=== PATIENT | female | born 1985 | race Caucasian/White ===

== ENCOUNTER 2019-09-22 13:48 | Emergency (ER) | payer OTHER ==
--- NOTE | 2019-09-22 16:24 | ER ---
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 Coronavirus screen: Patient reports a cough. Patient reports shortness of breath or difficulty breathing. Patient denies measured and/or subjective temperature greater than 100.4F prior to today's visit. Patient denies travel on a cruise ship or to a country the [facility] currently lists as an affected area. Prior COVID test positive. Ebola Screen: Patient negative for fever greater than or equal to 101.5 degrees Fahrenheit, and additional compatible Ebola Virus Disease symptoms Patient denies exposure to infectious person. Patient denies travel to an Ebola-affected area in the 21 days before illness onset. No symptoms or risks identified at this time. Initial Sepsis Screen: Does the patient meet any 2 criteria? No. Patient's initial sepsis screen is negative. Does the patient have a suspected source of infection? No. Patient's initial sepsis screen is negative. Risk Assessment: Do you want to hurt yourself or someone else? Patient reports no desire to harm self or others. 13:56 Method Of Arrival: Ambulatory em 13:56 Acuity: ARY 3 em Triage Assessment: 14:06 General: Appears in no apparent distress. comfortable. General: Behavior is calm, ls4 cooperative. Pain: Denies pain. EENT: No deficits noted. No signs and/or symptoms were reported regarding the EENT system. Neuro: No deficits noted. Neuro: Level of Consciousness is awake, alert, obeys commands, Oriented to person, place, time, situation, Research Aide are equal bilaterally Gait is steady, Reports a syncopal episode pt reports syncopal episode on Sunday. . Cardiovascular: No deficits noted. Respiratory: Reports shortness of breath cough that is dry, hacking, Airway is patent Respiratory effort is even, unlabored, Respiratory pattern is regular, Breath sounds are clear bilaterally. GI: No deficits noted. No signs and/or symptoms were reported involving the gastrointestinal system. : No deficits noted. No signs and/or symptoms were reported regarding the genitourinary system. Derm: No deficits noted. No signs and/or symptoms reported regarding the dermatologic system. Skin is intact, is healthy with good turgor, Skin is dry, Skin is normal, Skin temperature is warm. Musculoskeletal: No deficits noted. No signs and/or symptoms reported regarding the musculoskeletal system. Circulation, motion, and sensation intact. Capillary refill < 3 seconds, Range of motion: intact in all extremities. 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 - Social history:: Smoking status: Patient denies any tobacco usage or history of. Screenin:02 Abuse screen: Denies threats or abuse. Denies injuries from another. ls4 14:02 Nutritional screening: No deficits noted. Tuberculosis screening: No symptoms or risk ls4 factors identified. Fall Risk None identified. Assessment: 15:05 Reassessment: Patient appears in no apparent distress at this time. Patient and/or ls4 family updated on plan of care and expected duration. Pain level reassessed. Patient is alert, oriented x 3, equal unlabored respirations, skin warm/dry/pink. Patient denies pain at this time. Patient states symptoms have improved. 15:20 Reassessment: Patient appears in no apparent distress at this time. Patient and/or ls4 family updated on plan of care and expected duration. Pain level reassessed. Patient is alert, oriented x 3, equal unlabored respirations, skin warm/dry/pink. Pt given warm blanket. 16:17 Reassessment: assumed care of pt from Lia LOPEZ. went to pt room for 1st contact with pt. ks7 let her know I would do an EKG. went to get EKG machine. Pt walked by me as I was setting up EKG. asked pt if she was in room 30, she said no. arrived at room 30, door was open and pt not in room. asked another RN at main RN station if pt walked out of ED, he stated yes. Pt eloped. did not check out or receive dc paperwork. 16:22 Reassessment: observed pt walk out of ED steady on feet no s/s of distress. ks7 Vital Signs: 13:56 BP 111 / 80; Pulse 77; Resp 18; Temp 98.1(O); Pulse Ox 100% on R/A; Weight 72.57 kg; em Height 5 ft. 4 in. (162.56 cm); Pain 0/10; 13:56 Body Mass Index 27.46 (72.57 kg, 162.56 cm) em ED Course: 13:50 Patient arrived in ED. ag5 13:50 Leif Klein MD is Private Physician. ag5 13:50 Chong Chen MD is Private Physician. ag5 14:00 Triage completed. em 14:01 Arm band placed on. em 14:02 Patient has correct armband on for positive identification. Bed in low position. Call ls4 light in reach. Side rails up X 1. engine lathe tender on. Pulse ox on. NIBP on. Verbal reassurance given. 14:02 No provider procedures requiring assistance completed. ls4 14:02 Patient maintains SpO2 saturation greater than 95% on room air. ls4 14:04 [facility] West [facility]C [facility]. snw 14:04 Pete Can MD is Attending Physician. snw 14:15 Lia Gambino, JESSICA is Primary Nurse. ls4 16:08 Britta Gonzalez, JESSICA is Primary Nurse. ks7 Administered Medications: No medications were administered Point of Care Testing: Blood Glucose: 14:06 Blood Glucose: 106 mg/dL; em Ranges: Outcome: 16:17 Eloped from patient exam room, after seeing physician Time discovered patient gone: ks7 September 22, 2019 at 16:18 16:17 Condition: stable 16:23 Patient left the ED. ks7 Signatures: Celena West FNP-C FNP-Bhupendra George, RN RN Lia Gambino, JESSICA RN ls4 Brody Cisse ag5 Britta Gonzalez RN RN ks7 Corrections: (The following items were deleted from the chart) 14:09 13:56 Chief complaint: Patient states: passed out on Sunday and was taken to [place], em discharged and diagnosed with dehydration, found out she is covid + on , reports covid em
--- OUTSIDE RECORDS SUMMARY | 2019-09-22 17:17 | XMS REPORT | Continuity of Care Document ---
:1985 Author Organization [facility] Address [address] [place] [address] Care Team Providers Name Role Phone Abisai Costello Attending Clinician Lab, Fam Pob I Attending Clinician Unavailable Problems This patient has no known problems. Allergies, Adverse Reactions, Alerts This patient has no known allergies or adverse reactions. Medications This patient has no known medications. Procedures This patient has no known procedures. Encounters Start End Encounter Admission Attending Care Care Encounter Source Date/Time Date/Time Type Type Clinicians Facility Department ID 2019-09-19 2019-09-19 Telephone Anastasia, [facility] [id number] 00:00:00 00:00:00 [facility] [id number] [place] [id number] Professio [phone] nal [address] 2019-09-17 2019-09-17 Laboratory Lab, [facility] [id number] 10:45:23 11:05:23 Only Fam Pob I Health [id number] [place] [id number] Professio [phone] nal [phone] One Results This patient has no known results.
--- OUTSIDE RECORDS SUMMARY | 2019-09-22 17:17 | XMS REPORT | Summary of Care ---
:1985 Author Organization [facility] Address [address] [place] [address] Care Team Providers Name Role Phone Unavailable Primary Care Provider Unavailable Encounter Details Date Type Department Care Team Description 09/17/2019 Letter (Out) [facility] Message s Doctor Unassigned, No [address] [facility] [place] [address] [address] [facility] [phone] [place] [address] Allergies Not on Filedocumented as of this encounter (statuses as of 09/17/2019) Medications Not on filedocumented as of this encounter (statuses as of 09/17/2019) Active Problems Not on filedocumented as of this encounter (statuses as of 09/17/2019) Social History Tobacco Use Types Packs/Day Years Used Date Never Assessed Sex Assigned at Date Recorded Not on file Job Start Date Occupation Industry Not on file Not on file Not on file Travel History Travel Start Travel End No recent travel history available. documented as of this encounter Last Filed Vital Signs Not on filedocumented in this encounter Plan of Treatment Date Type Specialty Care Team Description 09/17/2019 Laboratory Only Family Medicine Verenice Whitman, DAVIDE [address] [address] Lab, Adc Fam Pob I Health Maintenance Due Date Last Done Comments VARICELLA VACCINES (1 of 2 - 1985 2-dose childhood series) DTaP,Tdap,and Td Vaccines (1 06/05/1995 - Tdap) Depression Screening 1996 PAP SMEAR 2005 INFLUENZA VACCINE (#1) 2019 11/22/2012, 05/20/2012 PNEUMOCOCCAL 0-64 YEARS Aged Out No longe r eligible based COMBINED SERIES on patient's age to complete this to pic documented as of this encounter Results Not on filedocumented in this encounter Insurance Payer Benefit Plan / Group Subscriber ID Effective Dates Phone Address Type KARMEN PERAZA II [id number] 2019-Present H [place]/PPO/POS documented as of this encounter
--- OUTSIDE RECORDS SUMMARY | 2019-09-22 17:17 | XMS REPORT | Summary of Care ---
:1985 Author Organization [facility] Address [address] [place] [address] Care Team Providers Name Role Phone Unavailable Primary Care Provider Unavailable Reason for Visit Reason Comments Results Encounter Details Date Type Department Care Team Description 09/19/2019 Telephone [facility] Family Medicine Cynthia Barber PA Results - [address] [facility] [place] [address] [place] [address] [phone] Allergies Not on Filedocumented as of this encounter (statuses as of 09/19/2019) Medications Not on filedocumented as of this encounter (statuses as of 09/19/2019) Active Problems Not on filedocumented as of this encounter (statuses as of 09/19/2019) Social History Tobacco Use Types Packs/Day Years Used Date Never Assessed Sex Assigned at Date Recorded Not on file Job Start Date Occupation Industry Not on file Not on file Not on file Travel History Travel Start Travel End No recent travel history available. documented as of this encounter Last Filed Vital Signs Not on filedocumented in this encounter Plan of Treatment Health Maintenance Due Date Last Done Comments VARICELLA VACCINES (1 of 2 - 1985 2-dose childhood series) DTaP,Tdap,and Td Vaccines (1 06/05/1995 - Tdap) Depression Screening 1996 PAP SMEAR 2005 INFLUENZA VACCINE (#1) 2019 11/22/2012, 05/20/2012 PNEUMOCOCCAL 0-64 YEARS Aged Out No longe r eligible based COMBINED SERIES on patient's age to complete this to [facility] documented as of this encounter Results Not on filedocumented in this encounter Additional Health Concerns Infection Onset Date Last Indicated Resolved Time COVID-19 Confirmed 09/17/2019 09/17/2019 documented as of this encounter Insurance Payer Benefit Plan / Group Subscriber ID Effective Dates Phone Address Type KARMEN PERAZA II [id number] 2019-Present H [place]/PPO/POS documented as of this encounter
--- OUTSIDE RECORDS SUMMARY | 2019-09-22 17:17 | XMS REPORT | Summary of Care ---
:1985 Author Organization [facility] Address [address] [place] [address] Care Team Providers Name Role Phone Unavailable Primary Care Provider Unavailable Reason for Visit Reason Comments Exposure Encounter Details Date Type Department Care Team Description 09/17/2019 Laboratory Only [facility] Family May Whitman, COMPUTER NETWORKING INSTRUCTOR [employer] [address] [place] [address] Suspected Covid-19 [facility] Lab, Adc Fam Pob I Virus Infection [address] [place] [address] (Primary D x) [place] [address] Allergies Not on Filedocumented as of this [...] filedocumented in this encounter Plan of Treatment Name Type Priority Associated Diagnoses Order S chedule COVID-19 (PCR MOLECULAR LAB Routine Suspected Covid-1 9 Virus Expected: 09/17/2019, TESTING) Infection Expires: 2020 Health Maintenance Due Date Last Done Comments VARICELLA VACCINES (1 of 2 - 1985 2-dose childhood series) DTaP,Tdap,and Td Vaccines (1 06/05/1995 - Tdap) Depression Screening 1996 PAP SMEAR 2005 INFLUENZA VACCINE (#1) 2019 11/22/2012, 05/20/2012 PNEUMOCOCCAL 0-64 YEARS Aged Out No longe r eligible based COMBINED SERIES on patient's age to complete this to [facility] documented as of this encounter Results Not on filedocumented in this encounter Visit Diagnoses Diagnosis Suspected Covid-19 Virus Infection - Carolin gallego documented in this encounter Additional Health Concerns Infection Onset Date Last Indicated Resolved Time COVID-19 Rule Out 09/17/2019 09/17/2019 documented as of this encounter documented as of this encounter
--- OUTSIDE RECORDS SUMMARY | 2019-09-22 17:17 | XMS REPORT | Summary of Care ---
:1985 Author Organization [facility] Address [address] [place] [address] Care Team Providers Name Role Phone Unavailable Primary Care Provider Unavailable Reason for Visit Reason Comments Exposure Encounter Details Date Type Department Care Team Description 09/17/2019 Laboratory Only [facility] Family May Whitman, LOGISTICS SERVICE REPRESENTATIVE [address] [place] [address] Suspected Covid-19 [facility] Lab, Adc Fam Pob I Virus Infection [address] [place] [address] (Primary D x) [place] [address] Allergies Not on Filedocumented as [...] on patient's age to complete this to [facility] documented as of this encounter Results Not on filedocumented in this encounter Visit Diagnoses Diagnosis Suspected Covid-19 Virus Infection - Carolin gallego documented in this encounter Additional Health Concerns Infection Onset Date Last Indicated Resolved Time COVID-19 Rule Out 09/17/2019 09/17/2019 documented as of this encounter documented as of this encounter
[2019-09-23 02:45] VITALS: BP 111/80; TEMP 98.1; O2SAT 100
--- NOTE | 2019-09-23 16:27 | EDPHYS ---
Physician Documentation [facility] Name: Elisabeth Marquez Age: 34 yrs Sex: Female : 1985 Arrival Date: 09/22/2019 Time: 13:50 Bed 30 Private MD: Chong Chen ED Physician Pete Can HPI: 09/21 15:20 This 34 yrs old Female presents to ER via Ambulatory with complaints of snw Passed Out Prior To Arrival, Covid +. 15:20 The patient has experienced syncope, became unresponsive. Onset: The symptoms/episode snw began/occurred Sunday (4 days ago) and Last pm. . Duration: This was a single episode, that lasted an unknown period of time. Context: the episode(s) was witnessed, by family, , occurred while the patient was getting up from bed. Associated injury: The patient did not suffer any apparent associated injury. Associated signs and symptoms: The patient has no apparent associated signs or symptoms. Current symptoms: Currently, the patient is not experiencing any symptoms. The patient has not experienced similar symptoms in the past. The patient has been recently seen by a physician: Dr. Chen virtually today. 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 - Social history:: Smoking status: Patient denies any tobacco usage or history of. ROS: 16:53 Constitutional: Negative for fever, chills, and weight loss, Eyes: Negative for injury, snw pain, redness, and discharge, ENT: Negative for injury, pain, and discharge, Neck: Negative for injury, pain, and swelling, Cardiovascular: Negative for chest pain, palpitations, and edema, Respiratory: Negative for shortness of breath, cough, wheezing, and pleuritic chest pain, Abdomen/GI: Negative for abdominal pain, nausea, vomiting, diarrhea, and constipation, Back: Negative for injury and pain, : Negative for injury, bleeding, discharge, and swelling, MS/Extremity: Negative for injury and deformity, Skin: Negative for injury, rash, and discoloration, Neuro: Negative for headache, weakness, numbness, tingling, and seizure, Psych: Negative for depression, anxiety, suicide ideation, homicidal ideation, and hallucinations. Exam: 16:52 Constitutional: This is a well developed, well nourished patient who is awake, alert, snw and in no acute distress. Head/Face: Normocephalic, atraumatic. Eyes: Pupils equal round and reactive to light, extra-ocular motions intact. Lids and lashes normal. Conjunctiva and sclera are non-icteric and not injected. Cornea within normal limits. Periorbital areas with no swelling, redness, or edema. ENT: Nares patent. No nasal discharge, no septal abnormalities noted. Tympanic membranes are normal and external auditory canals are clear. Oropharynx with no redness, swelling, or masses, exudates, or evidence of obstruction, uvula midline. Mucous membranes moist. Neck: Trachea midline, no thyromegaly or masses palpated, and no cervical lymphadenopathy. Supple, full range of motion without nuchal rigidity, or vertebral point tenderness. No Meningismus. Chest/axilla: Normal chest wall appearance and motion. Nontender with no deformity. No lesions are appreciated. Cardiovascular: Regular rate and rhythm with a normal S1 and S2. No gallops, murmurs, or rubs. Normal PMI, no JVD. No pulse deficits. Respiratory: Lungs have equal breath sounds bilaterally, clear to auscultation and percussion. No rales, rhonchi or wheezes noted. No increased work of breathing, no retractions or nasal flaring. Abdomen/GI: Soft, non-tender, with normal bowel sounds. No distension or tympany. No guarding or rebound. No evidence of tenderness throughout. Back: No spinal tenderness. No costovertebral tenderness. Full range of motion. Skin: Warm, dry with normal turgor. Normal color with no rashes, no lesions, and no evidence of cellulitis. MS/ Extremity: Pulses equal, no cyanosis. Neurovascular intact. Full, normal range of motion. Psych: Awake, alert, with orientation to person, place and time. Behavior, mood, and affect are within normal limits. 16:52 Neuro: Orientation: is normal, Mentation: is normal, Memory: is normal, Motor: is normal, Gait: is steady, seizure activity, is not displayed by the patient. Vital Signs: 13:56 BP 111 / 80; Pulse 77; Resp 18; Temp 98.1(O); Pulse Ox 100% on R/A; Weight 72.57 kg; em Height 5 ft. 4 in. (162.56 cm); Pain 0/10; 13:56 Body Mass Index 27.46 (72.57 kg, 162.56 cm) em MDM: 15:13 Patient medically screened. snw 16:00 Data reviewed: vital signs, nurses notes. Data interpreted: Pulse oximetry: on room air snw is 100 %. Interpretation: normal. Special discussion: Based on the history and exam findings, there is no indication for further emergent testing or inpatient evaluation. I discussed with the patient/guardian the need to see the primary care provider for further evaluation of the symptoms. ED course: discussed orthostatic hypotension and volume depletion with pt. Told pt they would come in and do orthostatic vital signs.. 16:00 ED course: Observed pt walking with steady gait out of ED doors.. snw 16:54 Response to treatment: There is no appreciated change of the patient's symptoms at this snw time. 09/21 14:14 Order name: Glucose, Ancillary Testing; Complete Time: 14:18 EDMS 09/21 15:31 Order name: EKG; Complete Time: 15:32 snw 09/21 15:31 Order name: EKG - Nurse/Tech snw 09/21 15:51 Order name: Orthostatics snw Administered Medications: No medications were administered Point of Care Testing: Blood Glucose: 14:06 Blood Glucose: 106 mg/dL; em Ranges: Critical Glucose Levels:Adult <50 mg/dl or >400 mg/dl <40 mg/dl or >180 mg/dl Disposition: 18:25 Co-signature as Attending Physician, Pete Can MD. rn Disposition: 09/22/19 16:23 Patient left the facility after being seen by provider. - Patient left due to (see nurse's notes). Signatures: Dispatcher [employer] Celena Guillermo, DAVIDE-C MARRIAGE AND FAMILY TEACHER-Csnw Bhupendra Euceda, RN Pete Loya MD MD rn Songcuan, Kathleen, RN RN ks7
== END 2019-09-22 16:23 | disposition left against medical advice (07) ==
LOC: ER 13:48
DX: R55 Syncope and collapse (principal); Z88.0 Allergy status to penicillin; Z53.29 Procedure and treatment not carried out because of patient's decision for other reasons
CPT/HCPCS: 82947; 99284